=== PATIENT | male | born 1950 | race Caucasian/White ===

== ENCOUNTER 2019-04-06 15:41 | Emergency (ER) | payer OTHER ==
[2019-04-06] MEDS ORDERED: Adacel (T-DAP) 0.5 ML SYRINGE ONE ×2 (18:52→19:08)
[2019-04-06] MEDS ORDERED: Lidocaine 1% PF 5 ML VIAL ONE (19:01)
[2019-04-06] MEDS ORDERED: Triple Antibiotic Oint 1 GM Packet ONE (19:52)
== END 2019-04-06 16:02 | disposition left against medical advice (07) ==
LOC: ERS 15:41
DX: Z53.21 Procedure and treatment not carried out due to patient leaving prior to being seen by health care provider (principal)
CPT/HCPCS: 90715; J2001

== ENCOUNTER 2019-04-06 17:36 | Emergency (ER) | payer MEDICARE ==
--- NOTE | 2019-04-06 18:11 | RAD ---
EXAM: 3 views right middle finger DATE: 04/06/2019 5:41 PM INDICATION: Caught right middle finger in hydraulic table with laceration COMPARISON: None. 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 No acute fracture or subluxation is evident. There is overlying soft tissue bandage slightly limiting image detail. IMPRESSION:No acute fracture or subluxation demonstrated. No radiopaque foreign body.
== END 2019-04-06 20:00 | disposition home or self-care (01) ==
LOC: ERS 17:36
DX: S61.212A Laceration without foreign body of right middle finger without damage to nail, initial encounter (principal); I25.2 Old myocardial infarction; Z23 Encounter for immunization; Z79.899 Other long term (current) drug therapy; W23.0XXA Caught, crushed, jammed, or pinched between moving objects, initial encounter
CPT/HCPCS: 12001; 90471

== ENCOUNTER 2019-09-30 11:06 | Outpatient (CLI) | payer MEDICARE ==
--- NOTE | 2019-09-30 13:49 | RAD ---
PA AND LATERAL VIEWS CHEST: HISTORY: Fever of unknown origin. FINDINGS: Comparison is made with the exam of 08/25/2010. There are changes of median sternotomy. The heart size is normal. The aorta is tortuous. The lungs are expanded without focal areas of consolidation, pneumothoraces, or pleural effusions. There are degenerative changes in the spine. IMPRESSION: No radiographic evidence of acute cardiopulmonary process. POS: H
== END 2019-09-30 11:07 | disposition home or self-care (01) ==
LOC: RAD 11:06
PROVIDERS: ATTEND Physician Assistant
DX: R50.9 Fever, unspecified (principal)
CPT/HCPCS: 36415; 71046; 87040

== ENCOUNTER 2021-09-12 08:18 | Emergency (ER) | payer MEDICARE ==
[2021-09-12 09:41] LABS: #Eosinphils 0.1 thou/uL (0.0-0.7); #Lymphocytes 1.9 thou/uL (1.20-3.40); #Monocytes 0.6 thou/uL (0.11-0.59); #Neutrophils 3.3 thou/uL (1.40-6.50); %Basophils 0.6 % (0.0-1.0); %Lymphocytes 31.2 % (21.0-51.0); %Monocytes 10.7 % (0.0-10.0); %Neutrophils 55.5 % (42.0-75.0); Hemoglobin 15.9 g/dL (14.0-18.0); Mean Corpuscular HGB CONC 32.5 g/dL (32.0-36.0); Mean Corpuscular Hemoglobin 29.7 pg (27.0-31.0); Mean Corpuscular Volume 91.2 fL (78.0-98.0); Mean Platelet Volume 6.8 fL (7.4-10.4); Platelet Count 206 thou/uL (130-400); RBC Distribution Width 11.7 % (11.5-14.5); Red Blood Cell (RBC) Count 5.37 mill/uL (4.70-6.10)
[2021-09-12 09:57] LABS: ALT (SGPT) 45 U/L (8-55); AST (SGOT) 37 U/L (5-34); Albumin 3.8 g/dL (3.4-4.8); Alkaline Phosphatase 90 U/L (40-110); Anion Gap 13 mmol/L (10-20); BUN (Urea Nitrogen) 33 mg/dL (8.4-25.7); Bilirubin, Total 1.2 mg/dL (0.2-1.2); Calc. Creatinine Clearance 0 mL/min (70-130); Calcium 9.2 mg/dL (7.8-10.44); Carbon Dioxide 23 mmol/L (23-31); Chloride 108 mmol/L (98-107); Globulin 3.2 g/dL (2.4-3.5); Glucose 109 mg/dL (80-115); Lipase 30 U/L (8-78); Potassium 3.7 mmol/L (3.5-5.1); Sodium 140 mmol/L (136-145)
== END 2021-09-12 13:15 | disposition home or self-care (01) ==
LOC: ERS 08:18
DX: E86.0 Dehydration (principal); I10 Essential (primary) hypertension; I25.2 Old myocardial infarction; Z79.899 Other long term (current) drug therapy
CPT/HCPCS: 36415; 71045; 80053; 83605; 83690; 84484; 85025; 93005; 94760

== ENCOUNTER 2021-10-01 10:15 | Outpatient (CLI) | payer MEDICARE ==
[2021-10-01 12:28] LABS: Bilirubin Neg (Negative); Blood, Urine Negative (Negative); Clarity Clear (Clear); Glucose, Urine (Dipstick) Normal (Negative); Ketone, Urine Negative (Negative); Leukocyte Negative (Negative); Nitrite Negative (Negative); Protein, Urine (Dipstick) Negative (Neg-Trace); Specific Gravity, Urine 1.015 (1.002-1.036); Urobilinogen Normal mg/dL (Less than 2)
[2021-10-01 12:34] LABS: Hemoglobin 14.3 g/dL (13.5-17.5); Mean Corpuscular HGB CONC 33.2 g/dL (32.0-36.0); Mean Corpuscular Hemoglobin 30.1 pg (27.0-33.0); Mean Corpuscular Volume 90.7 fl (81.2-95.1); Mean Platelet Volume 9.5 fl (7.4-10.4); Platelet Count 192 10x3/uL (150-450); RBC Distribution Width 12.7 % (11.5-14.5); Red Blood Cell (RBC) Count 4.75 10x6/uL (4.32-5.72); White Blood Cell (WBC) Count 5.9 10x3/uL (3.5-10.5)
[2021-10-01 12:35] LABS: Bacteria/HPF Rare-Few HPF (None Seen); Squamous Epithelial 0-3 HPF (0-3); WBC/HPF None Seen HPF (0-3)
[2021-10-01 12:36] LABS: RBC/HPF 0-3 HPF (0-3)
[2021-10-01 13:12] LABS: Anion Gap 11 mmol/L (10-20); BUN (Urea Nitrogen) 16 mg/dL (8.4-25.7); Calc. Creatinine Clearance 0 mL/min (70-130); Calcium 8.6 mg/dL (7.8-10.44); Carbon Dioxide 26 mmol/L (23-31); Chloride 109 mmol/L (98-107); Glucose 101 mg/dL (80-115); Potassium 4.2 mmol/L (3.5-5.1); Sodium 142 mmol/L (136-145)
[2021-10-01 23:42] LABS: SARS-CoV-2 PCR by NAA Not Detected (NotDetected)
== END 2021-10-01 10:16 | disposition home or self-care (01) ==
LOC: LABBT 10:15
PROVIDERS: ATTEND Urology
DX: Z01.812 Encounter for preprocedural laboratory examination (principal); N40.1 Benign prostatic hyperplasia with lower urinary tract symptoms; Z20.822 Contact with and (suspected) exposure to COVID-19
CPT/HCPCS: 80048; 81001; 85027; 87086; U0003; U0005

== ENCOUNTER 2021-10-04 05:58 | Day surgery (SDC) | payer MEDICARE ==
[2021-10-01 11:16] VITALS: BMI 31.9
[2021-10-04] MEDS ORDERED: Fentanyl 250 MCG/5 ML VIAL ONE (06:56)
[2021-10-04] MEDS ORDERED: Levofloxacin 500 mg/D5W 100 ml Premix Bag ONE (07:26)
[2021-10-04] MEDS ORDERED: Ketorolac Tromethamine 30 MG/ML VIAL ONE (08:29)
[2021-10-04] MEDS ORDERED: Phenazopyridine HCl 100 MG TAB ONE (08:29)
[2021-10-04] MEDS ORDERED: Oxybutynin 5 MG TAB ONE (08:29)
[2021-10-04] MEDS ORDERED: hydrALAZINE 20 MG/ML VIAL ONE (09:50)
[2021-10-04] MEDS ORDERED: Losartan 25 MG TAB PO SCH (11:00)
[2021-10-04] MEDS ORDERED: Carvedilol 6.25 MG TAB PO SCH (11:00)
== END 2021-10-04 12:30 | disposition home or self-care (01) ==
LOC: SDC 05:58
PROVIDERS: ATTEND Urology
PROC: 0T7D8DZ Dilation of Urethra with Intraluminal Device, Via Natural or Artificial Opening Endoscopic (ICD-10-PCS; principal; 2021-10-04)
DX: N40.1 Benign prostatic hyperplasia with lower urinary tract symptoms (principal); N32.81 Overactive bladder; N52.01 Erectile dysfunction due to arterial insufficiency; I10 Essential (primary) hypertension; Z79.82 Long term (current) use of aspirin; Z79.899 Other long term (current) drug therapy; Z88.2 Allergy status to sulfonamides; Z95.1 Presence of aortocoronary bypass graft
CPT/HCPCS: C9740; L8699; J0360; J1885; J1956; J3010

== ENCOUNTER 2022-03-24 12:09 | Outpatient (CLI) | payer MEDICARE | END 2022-03-24 12:10 | disposition home or self-care (01) | LOC: BICULT 12:09 | PROVIDERS: ATTEND Internal Medicine Cardiovascular Disease | DX: E04.1 Nontoxic single thyroid nodule (principal) | CPT/HCPCS: 76536 ==

== ENCOUNTER 2023-03-31 13:38 | Outpatient (CLI) | payer MEDICARE | END 2023-03-31 13:39 | disposition home or self-care (01) | LOC: BICULT 13:38 | PROVIDERS: ATTEND Family Medicine | DX: E07.89 Other specified disorders of thyroid (principal); E04.1 Nontoxic single thyroid nodule | CPT/HCPCS: 76536 ==

== ENCOUNTER 2025-04-01 15:21 | Emergency (ER) | payer MEDICARE ==
[2025-04-01 15:46] LABS: #Basophils 0.03 10x3/uL (0.0-0.2); #Eosinophils 0.37 10x3/uL (0.0-0.7); #Monocytes 0.50 10x3/uL (0.11-0.59); #Neutrophils 18.78 10x3/uL (1.40-6.50); %Basophils 0.1 % (0.0-1.0); %Eosinophils 1.7 % (0.0-10.0); %Lymphocytes 6.9 % (21.0-51.0); %Monocytes 2.3 % (0.0-10.0); %Neutrophils 88.2 % (42.0-75.0); Hematocrit 51.4 % (42.0-52.0); Hemoglobin 17.4 g/dL (14.0-18.0); Mean Corpuscular Hemoglobin 29.8 pg (27.0-31.0); Mean Corpuscular Volume 88.0 fL (78.0-98.0); Platelet Count 244 10x3/uL (130-400); Red Blood Cell (RBC) Count 5.84 mill/uL (4.70-6.10); White Blood Cell (WBC) Count 21.31 10x3/uL (4.8-10.8)
[2025-04-01] MEDS ORDERED: Acetaminophen 500 MG TAB ONE (16:11)
[2025-04-01] MEDS ORDERED: predniSONE 20 MG TAB ONE (16:11)
[2025-04-01 16:16] LABS: ALT (SGPT) 28 U/L (Less than 45); AST (SGOT) 29 U/L (11-34); Albumin 3.6 g/dL (3.1-4.5); Alkaline Phosphatase 93 U/L (40-110); Anion Gap 16 mmol/L (10-20); BUN (Urea Nitrogen) 25 mg/dL (8.4-25.7); Bilirubin, Total 2.2 mg/dL (0.3-1.2); Calc. Creatinine Clearance 0 mL/min (70-130); Calcium 8.7 mg/dL (7.8-10.44); Carbon Dioxide 21 mmol/L (23-31); Chloride 100 mmol/L (98-107); Globulin 3.5 g/dL (2.4-3.5); Glucose 137 mg/dL (83-110); Potassium 3.7 mmol/L (3.5-5.1); Sodium 133 mmol/L (136-145)
[2025-04-01 16:40] LABS: INR-International Normal Ratio 1.4; Magnesium 1.5 mg/dL (1.6-2.6); PTT 31.6 sec (22.9-36.1); Prothrombin Time 16.9 sec (12.0-14.7)
[2025-04-01] MEDS ORDERED: Cefepime 2 GM VIAL ONE (17:04)
[2025-04-01] MEDS ORDERED: VANCOMYCIN 2 GRAM/400 ML Premix BAG IVPB SCH (17:15)
[2025-04-01] MEDS ORDERED: Magnesium 2 GM/50 ML BAG (IN WATER) ONE (18:34)
[2025-04-01 19:33] LABS: Bacteria/HPF 1+ HPF (None Seen); CAUTI Indications for Culture Dysuria,urgency,freq; Glucose, Urine (Dipstick) Normal (Negative); Leukocyte 25 Leu/uL (Negative); Protein, Urine (Dipstick) 30 mg/dL (Neg-Trace); RBC/HPF 0-3 HPF (0-3); Specific Gravity, Urine 1.031 (1.002-1.036)
[2025-04-01 19:34] LABS: Urine Culture Reflex Yes Yes
== END 2025-04-01 22:43 | disposition short-term general hospital (02) ==
LOC: ERS 15:21
DX: A41.9 Sepsis, unspecified organism (principal); L51.1 Stevens-Johnson syndrome; E78.5 Hyperlipidemia, unspecified; I10 Essential (primary) hypertension; Z95.1 Presence of aortocoronary bypass graft
CPT/HCPCS: 71045; 80053; 81001; 83605; 83735; 84145; 84484; 85025; 85610; 85730; 86060; 86141; 87040; 87086; 93005; 94760; J0692; J2270; J3475; 36415; 96361; 96365; 96366; 96367; 96375; J7512

== ENCOUNTER 2025-06-30 00:23 | Inpatient (IN) | payer MEDICARE ==
[2025-06-30 00:38] LABS: #Basophils 0.07 10x3/uL (0.0-0.2); #Eosinophils 0.23 10x3/uL (0.0-0.7); #Monocytes 0.73 10x3/uL (0.11-0.59); #Neutrophils 4.30 10x3/uL (1.40-6.50); %Basophils 0.8 % (0.0-1.0); %Eosinophils 2.5 % (0.0-10.0); %Lymphocytes 41.3 % (21.0-51.0); %Monocytes 8.0 % (0.0-10.0); %Neutrophils 47.0 % (42.0-75.0); Hematocrit 47.9 % (42.0-52.0); Hemoglobin 16.2 g/dL (14.0-18.0); Mean Corpuscular Hemoglobin 29.3 pg (27.0-31.0); Mean Corpuscular Volume 86.6 fL (78.0-98.0); Platelet Count 247 10x3/uL (130-400); Red Blood Cell (RBC) Count 5.53 mill/uL (4.70-6.10); White Blood Cell (WBC) Count 9.15 10x3/uL (4.8-10.8)
[2025-06-30 00:52] LABS: INR-International Normal Ratio 1.1; PTT 29.4 sec (22.9-36.1); Prothrombin Time 14.7 sec (12.0-14.7)
[2025-06-30 00:57] LABS: ALT (SGPT) 32 U/L (Less than 45); AST (SGOT) 35 U/L (11-34); Albumin 4.3 g/dL (3.1-4.5); Alkaline Phosphatase 99 U/L (40-110); Anion Gap 16 mmol/L (10-20); BUN (Urea Nitrogen) 18 mg/dL (8.4-25.7); Bilirubin, Total 1.4 mg/dL (0.3-1.2); Calc. Creatinine Clearance 0 mL/min (70-130); Calcium 9.6 mg/dL (7.8-10.44); Carbon Dioxide 23 mmol/L (23-31); Chloride 106 mmol/L (98-107); Globulin 3.3 g/dL (2.4-3.5); Glucose 116 mg/dL (83-110); Lipase 40 U/L (8-78); Potassium 3.8 mmol/L (3.5-5.1); Sodium 141 mmol/L (136-145)
[2025-06-30] MEDS ORDERED: Nitroglycerin 2% Ointment 1 INCH/1 GM Packet ONE (01:22)
[2025-06-30] MEDS ORDERED: Ondansetron PF 4 MG/2 ML Vial ONE ×2 (01:23→02:54)
[2025-06-30] MEDS ORDERED: Aspirin Chewable 81 MG TAB ONE (01:23)
[2025-06-30] MEDS ORDERED: Heparin 25,000 UNITS/D5W 500 ml bag ONE (01:56)
[2025-06-30] MEDS ORDERED: Heparin 10,000 UNITS/ 10 ML VIAL ONE ×2 (01:56→02:37)
[2025-06-30] MEDS ORDERED: Nitroglycerin 0.4 MG TAB (25 Tab Bottle) ONE (01:56)
[2025-06-30] MEDS ORDERED: Lidocaine 1% (PF) 30 ML VIAL ONE (02:37)
[2025-06-30] MEDS ORDERED: Adenosine 6 mg (2 mL) VIAL ONE (02:38)
[2025-06-30] MEDS ORDERED: Nitroglycerin 50 MG/250 ML BOT 0 ML ONE (02:38)
[2025-06-30] MEDS ORDERED: EPINEPHrine 1 MG/10 ML Abboject SYRINGE ONE (02:50)
[2025-06-30] MEDS ORDERED: PHENYLEPHRINE-NS 100 MCG/ML 10 ML SYRINGE ONE (02:50)
[2025-06-30] MEDS ORDERED: Nitroglycerin 0.4 MG TAB (25 Tab Bottle) SL PRN (05:06)
[2025-06-30] MEDS: Acetaminophen/Codeine 30-300mg Tablet PO PRN ×2 (05:38→09:16)
[2025-06-30] MEDS: Nitroglycerin 0.4 MG TAB (25 Tab Bottle) SL PRN (05:38)
[2025-06-30] MEDS ORDERED: Heparin 10,000 UNITS/ 10 ML VIAL SLOW IVP SCH (05:45)
[2025-06-30 06:30] LABS: Hematocrit 46.5 % (42.0-52.0); Hemoglobin 16.1 g/dL (14.0-18.0); Platelet Count 228 10x3/uL (130-400)
[2025-06-30] MEDS: Nitroglycerin 2% Ointment 1 INCH/1 GM Packet TOP PRN (06:52)
[2025-06-30] MEDS ORDERED: Electrolyte Replacement Protocol 1 EACH FS ONE (09:01)
[2025-06-30] MEDS ORDERED: PHOS-NAK 1 PKT PACK PO PRN (09:15)
[2025-06-30] MEDS ORDERED: Potassium Chloride 20 MEQ in Premix 1 BAG IVPB PRN (09:15)
[2025-06-30] MEDS: Losartan 25 MG TAB PO SCH (09:17)
[2025-06-30] MEDS: Aspirin 81 mg Enteric Coated Tablet PO SCH (09:17)
[2025-06-30] MEDS: Nitroglycerin 50 MG/250 ML BOT 250 ML IVPB SCH (10:02)
[2025-06-30 10:23] LABS: Anion Gap 15 mmol/L (10-20); BUN (Urea Nitrogen) 13 mg/dL (8.4-25.7); Calc. Creatinine Clearance 112 mL/min (70-130); Calcium 9.2 mg/dL (7.8-10.44); Carbon Dioxide 21 mmol/L (23-31); Chloride 105 mmol/L (98-107); Glucose 151 mg/dL (83-110); Magnesium 1.8 mg/dL (1.6-2.6); Potassium 3.8 mmol/L (3.5-5.1); Sodium 137 mmol/L (136-145)
[2025-06-30] MEDS ORDERED: Iopamidol 370 76% 100 ML VIAL ONE (10:59)
[2025-06-30] MEDS: Nitroglycerin 2% Ointment 1 INCH/1 GM Packet TOP SCH (13:35)
[2025-06-30] MEDS: Mupirocin 1 GM TUBE NASAL DECOLONIZATION NASAL SCH (19:36)
[2025-06-30 19:57] LABS: Hematocrit 45.5 % (42.0-52.0); Hemoglobin 15.3 g/dL (14.0-18.0); Platelet Count 242 10x3/uL (130-400)
[2025-07-01 03:18] LABS: #Basophils Less than 0.03 10x3/uL (0.0-0.2); #Eosinophils 0.05 10x3/uL (0.0-0.7); #Monocytes 1.35 10x3/uL (0.11-0.59); #Neutrophils 9.26 10x3/uL (1.40-6.50); %Basophils 0.2 % (0.0-1.0); %Eosinophils 0.4 % (0.0-10.0); %Lymphocytes 14.2 % (21.0-51.0); %Monocytes 10.8 % (0.0-10.0); %Neutrophils 74.2 % (42.0-75.0); Hematocrit 42.0 % (42.0-52.0); Hemoglobin 14.8 g/dL (14.0-18.0); Mean Corpuscular Hemoglobin 30.1 pg (27.0-31.0); Mean Corpuscular Volume 85.5 fL (78.0-98.0); Platelet Count 230 10x3/uL (130-400); Red Blood Cell (RBC) Count 4.91 mill/uL (4.70-6.10); White Blood Cell (WBC) Count 12.48 10x3/uL (4.8-10.8)
[2025-07-01 04:05] LABS: ALT (SGPT) 50 U/L (Less than 45); AST (SGOT) 240 U/L (11-34); Albumin 3.6 g/dL (3.1-4.5); Alkaline Phosphatase 83 U/L (40-110); Anion Gap 18 mmol/L (10-20); BUN (Urea Nitrogen) 14 mg/dL (8.4-25.7); Bilirubin, Total 2.0 mg/dL (0.3-1.2); Calc. Creatinine Clearance 105 mL/min (70-130); Calcium 9.0 mg/dL (7.8-10.44); Carbon Dioxide 23 mmol/L (23-31); Cardiac Risk 2.9 (Less than 4.5); Chloride 104 mmol/L (98-107); Cholesterol 126 mg/dl (< 200 Desired); Globulin 2.9 g/dL (2.4-3.5); Glucose 135 mg/dL (83-110); HDL Cholesterol 43 mg/dL (>60 Neg Risk); LDL Cholesterol, Calculated 70 mg/dL; Potassium 3.6 mmol/L (3.5-5.1); Sodium 141 mmol/L (136-145); Triglycerides 67 mg/dL (Less than 150)
[2025-07-01] MEDS: TICAGRELOR 90 MG TABLET PO SCH (08:31)
[2025-07-01] MEDS: Losartan 25 MG TAB PO SCH (11:23)
[2025-07-01 16:57] LABS: Magnesium 1.7 mg/dL (1.6-2.6)
[2025-07-01] MEDS: Magnesium 2 GM/50 ML(in water) 2 GM in Premix 1 BAG IVPB PRN (17:08)
[2025-07-02 03:57] LABS: Hematocrit 47.3 % (42.0-52.0); Hemoglobin 16.5 g/dL (14.0-18.0); Mean Corpuscular Hemoglobin 29.8 pg (27.0-31.0); Mean Corpuscular Volume 85.4 fL (78.0-98.0); Platelet Count 195 10x3/uL (130-400); Red Blood Cell (RBC) Count 5.54 mill/uL (4.70-6.10); White Blood Cell (WBC) Count 12.99 10x3/uL (4.8-10.8)
[2025-07-02 08:09] LABS: Hematocrit 48.5 % (42.0-52.0); Hemoglobin 16.5 g/dL (14.0-18.0); Platelet Count 219 10x3/uL (130-400)
[2025-07-02 08:27] LABS: ALT (SGPT) 39 U/L (Less than 45); AST (SGOT) 125 U/L (11-34); Albumin 3.6 g/dL (3.1-4.5); Alkaline Phosphatase 80 U/L (40-110); Anion Gap 15 mmol/L (10-20); BUN (Urea Nitrogen) 11 mg/dL (8.4-25.7); Bilirubin, Total 3.0 mg/dL (0.3-1.2); Calc. Creatinine Clearance 120 mL/min (70-130); Calcium 9.3 mg/dL (7.8-10.44); Carbon Dioxide 24 mmol/L (23-31); Chloride 102 mmol/L (98-107); Globulin 3.8 g/dL (2.4-3.5); Glucose 104 mg/dL (83-110); Magnesium 2.1 mg/dL (1.6-2.6); Potassium 3.7 mmol/L (3.5-5.1); Sodium 137 mmol/L (136-145)
[2025-07-02] MEDS: Losartan 25 MG TAB PO SCH (08:54)
[2025-07-02] MEDS: Metoprolol Succinate XL 50 MG ER.TAB PO SCH (08:54)
[2025-07-02] MEDS: TICAGRELOR 90 MG TABLET PO SCH (08:54)
[2025-07-02] MEDS: Spironolactone 25 MG TAB PO SCH (19:10)
[2025-07-02] MEDS: Sacubitril 24MG/Valsartan 26 MG TAB PO SCH (20:45)
[2025-07-03 04:47] LABS: Anion Gap 14 mmol/L (10-20); BUN (Urea Nitrogen) 17 mg/dL (8.4-25.7); Calc. Creatinine Clearance 113 mL/min (70-130); Calcium 9.0 mg/dL (7.8-10.44); Carbon Dioxide 21 mmol/L (23-31); Chloride 106 mmol/L (98-107); Glucose 87 mg/dL (83-110); Potassium 3.7 mmol/L (3.5-5.1); Sodium 137 mmol/L (136-145)
[2025-07-03] MEDS: Spironolactone 25 MG TAB PO SCH (09:05)
[2025-07-03] MEDS: Sacubitril 49 MG/Valsartan 51 MG TABLET PO SCH (09:05)
[2025-07-03] MEDS: Carvedilol 6.25 MG TAB PO SCH (09:06)
[2025-07-04 05:06] LABS: Hematocrit 47.4 % (42.0-52.0); Hemoglobin 16.5 g/dL (14.0-18.0); Mean Corpuscular Hemoglobin 30.8 pg (27.0-31.0); Mean Corpuscular Volume 88.4 fL (78.0-98.0); Platelet Count 255 10x3/uL (130-400); Red Blood Cell (RBC) Count 5.36 mill/uL (4.70-6.10); White Blood Cell (WBC) Count 11.57 10x3/uL (4.8-10.8)
[2025-07-04 05:14] LABS: ALT (SGPT) 28 U/L (Less than 45); AST (SGOT) 46 U/L (11-34); Albumin 3.4 g/dL (3.1-4.5); Alkaline Phosphatase 68 U/L (40-110); Anion Gap 17 mmol/L (10-20); BUN (Urea Nitrogen) 19 mg/dL (8.4-25.7); Bilirubin, Total 2.1 mg/dL (0.3-1.2); Calc. Creatinine Clearance 105 mL/min (70-130); Calcium 9.4 mg/dL (7.8-10.44); Carbon Dioxide 17 mmol/L (23-31); Chloride 107 mmol/L (98-107); Globulin 3.9 g/dL (2.4-3.5); Glucose 90 mg/dL (83-110); Potassium 3.9 mmol/L (3.5-5.1); Sodium 137 mmol/L (136-145)
[2025-07-04] MEDS: Carvedilol 6.25 MG TAB PO SCH (09:31)
[2025-07-04] MEDS: Furosemide 20 MG (2 mL) VIAL SLOW IVP SCH (13:41)
[2025-07-05 05:29] VITALS: BMI 32.3
[2025-07-05 15:31] VITALS: BP 142/88; TEMP 97.8
== END 2025-07-05 17:50 | disposition home or self-care (01) | DRG 282 ==
LOC: ERS 00:23 → CCL 02:57 → CCU 04:33 → 2NO 07-02 13:36
PROVIDERS: ADMIT Internal Medicine; ATTEND Internal Medicine
PROC: 4A023N8 Measurement of Cardiac Sampling and Pressure, Bilateral, Percutaneous Approach (ICD-10-PCS; principal; 2025-06-30)
PROC: B2161ZZ Fluoroscopy of Right and Left Heart using Low Osmolar Contrast (ICD-10-PCS; 2025-06-30)
PROC: B2111ZZ Fluoroscopy of Multiple Coronary Arteries using Low Osmolar Contrast (ICD-10-PCS; 2025-06-30)
DX: I25.10 Atherosclerotic heart disease of native coronary artery without angina pectoris (principal); I21.3 ST elevation (STEMI) myocardial infarction of unspecified site; I10 Essential (primary) hypertension; I25.5 Ischemic cardiomyopathy; E78.00 Pure hypercholesterolemia, unspecified; Z98.890 Other specified postprocedural states; Z88.2 Allergy status to sulfonamides; Z79.899 Other long term (current) drug therapy; Z95.1 Presence of aortocoronary bypass graft; Z79.82 Long term (current) use of aspirin
CPT/HCPCS: 0439T; 36215; 36225; 36415; 71045; 71046; 80048; 80053; 80061; 83690; 83735; 83880; 84484; 85014; 85018; 85025; 85027; 85049; 85347; 85379; 85610; 85730; 86850; 86900; 86901; 93005; 93010; 93306; 93459; 93798; 96365; 96375; 97139; 99152; 99153; C1725; C1769; J0153; J0165; J0461; J0583; J1644; J1940; J2003; J2250; J2270; J2272; J2405; J3010; J3246; J3475; Q9957; Q9967

== ENCOUNTER 2025-07-15 10:09 | Inpatient (IN) | payer MEDICARE ==
[2025-07-15 10:37] LABS: #Basophils 0.06 10x3/uL (0.0-0.2); #Eosinophils 0.20 10x3/uL (0.0-0.7); #Monocytes 0.69 10x3/uL (0.11-0.59); #Neutrophils 6.49 10x3/uL (1.40-6.50); %Basophils 0.6 % (0.0-1.0); %Eosinophils 1.9 % (0.0-10.0); %Lymphocytes 28.6 % (21.0-51.0); %Monocytes 6.6 % (0.0-10.0); %Neutrophils 61.9 % (42.0-75.0); Hematocrit 50.0 % (42.0-52.0); Hemoglobin 17.0 g/dL (14.0-18.0); Mean Corpuscular Hemoglobin 29.7 pg (27.0-31.0); Mean Corpuscular Volume 87.3 fL (78.0-98.0); Platelet Count 360 10x3/uL (130-400); Red Blood Cell (RBC) Count 5.73 mill/uL (4.70-6.10); White Blood Cell (WBC) Count 10.47 10x3/uL (4.8-10.8)
[2025-07-15 10:55] LABS: ALT (SGPT) 33 U/L (Less than 45); AST (SGOT) 35 U/L (11-34); Albumin 4.0 g/dL (3.1-4.5); Alkaline Phosphatase 94 U/L (40-110); Anion Gap 16 mmol/L (10-20); BUN (Urea Nitrogen) 20 mg/dL (8.4-25.7); Bilirubin, Total 1.1 mg/dL (0.3-1.2); Calc. Creatinine Clearance 0 mL/min (70-130); Calcium 9.8 mg/dL (7.8-10.44); Carbon Dioxide 21 mmol/L (23-31); Chloride 104 mmol/L (98-107); Globulin 3.8 g/dL (2.4-3.5); Glucose 111 mg/dL (83-110); Potassium 4.3 mmol/L (3.5-5.1); Sodium 137 mmol/L (136-145)
[2025-07-15] MEDS ORDERED: Nitroglycerin 0.4 MG TAB (25 Tab Bottle) SL PRN (13:57)
[2025-07-15] MEDS: Sacubitril 49 MG/Valsartan 51 MG TABLET PO SCH ×2 (14:54→21:15)
[2025-07-15 15:15] VITALS: BMI 32.2
[2025-07-15] MEDS ORDERED: TICAGRELOR 90 MG TABLET PO SCH (21:00)
[2025-07-15] MEDS: Carvedilol 6.25 MG TAB PO SCH (21:15)
[2025-07-16 05:32] LABS: #Basophils 0.05 10x3/uL (0.0-0.2); #Eosinophils 0.18 10x3/uL (0.0-0.7); #Monocytes 0.73 10x3/uL (0.11-0.59); #Neutrophils 5.85 10x3/uL (1.40-6.50); %Basophils 0.6 % (0.0-1.0); %Eosinophils 2.0 % (0.0-10.0); %Lymphocytes 22.7 % (21.0-51.0); %Monocytes 8.2 % (0.0-10.0); %Neutrophils 65.9 % (42.0-75.0); Hematocrit 48.4 % (42.0-52.0); Hemoglobin 16.5 g/dL (14.0-18.0); Mean Corpuscular Hemoglobin 29.8 pg (27.0-31.0); Mean Corpuscular Volume 87.5 fL (78.0-98.0); Platelet Count 331 10x3/uL (130-400); Red Blood Cell (RBC) Count 5.53 mill/uL (4.70-6.10); White Blood Cell (WBC) Count 8.87 10x3/uL (4.8-10.8)
[2025-07-16 06:01] LABS: ALT (SGPT) 32 U/L (Less than 45); AST (SGOT) 33 U/L (11-34); Albumin 3.4 g/dL (3.1-4.5); Alkaline Phosphatase 78 U/L (40-110); Anion Gap 17 mmol/L (10-20); BUN (Urea Nitrogen) 18 mg/dL (8.4-25.7); Bilirubin, Total 0.8 mg/dL (0.3-1.2); Calc. Creatinine Clearance 92 mL/min (70-130); Calcium 9.4 mg/dL (7.8-10.44); Carbon Dioxide 18 mmol/L (23-31); Chloride 111 mmol/L (98-107); Globulin 3.4 g/dL (2.4-3.5); Glucose 94 mg/dL (83-110); Potassium 4.6 mmol/L (3.5-5.1); Sodium 141 mmol/L (136-145)
[2025-07-16] MEDS: Spironolactone 25 MG TAB PO SCH (08:42)
[2025-07-16] MEDS: Aspirin 81 mg Enteric Coated Tablet PO SCH (08:42)
[2025-07-16] MEDS: Isosorbide Mononitrate 30 MG ER.TAB.S PO SCH (12:35)
[2025-07-17 05:16] LABS: #Basophils 0.07 10x3/uL (0.0-0.2); #Eosinophils 0.51 10x3/uL (0.0-0.7); #Monocytes 0.98 10x3/uL (0.11-0.59); #Neutrophils 5.39 10x3/uL (1.40-6.50); %Basophils 0.8 % (0.0-1.0); %Eosinophils 5.7 % (0.0-10.0); %Lymphocytes 22.1 % (21.0-51.0); %Monocytes 10.9 % (0.0-10.0); %Neutrophils 60.3 % (42.0-75.0); Hematocrit 45.7 % (42.0-52.0); Hemoglobin 15.3 g/dL (14.0-18.0); Mean Corpuscular Hemoglobin 29.6 pg (27.0-31.0); Mean Corpuscular Volume 88.4 fL (78.0-98.0); Platelet Count 317 10x3/uL (130-400); Red Blood Cell (RBC) Count 5.17 mill/uL (4.70-6.10); White Blood Cell (WBC) Count 8.95 10x3/uL (4.8-10.8)
[2025-07-17 05:25] LABS: ALT (SGPT) 27 U/L (Less than 45); AST (SGOT) 23 U/L (11-34); Albumin 3.4 g/dL (3.1-4.5); Alkaline Phosphatase 79 U/L (40-110); Anion Gap 13 mmol/L (10-20); BUN (Urea Nitrogen) 24 mg/dL (8.4-25.7); Bilirubin, Total 1.0 mg/dL (0.3-1.2); Calc. Creatinine Clearance 79 mL/min (70-130); Calcium 9.1 mg/dL (7.8-10.44); Carbon Dioxide 21 mmol/L (23-31); Chloride 109 mmol/L (98-107); Globulin 3.1 g/dL (2.4-3.5); Glucose 90 mg/dL (83-110); Potassium 4.1 mmol/L (3.5-5.1); Sodium 139 mmol/L (136-145)
[2025-07-17] MEDS: Isosorbide Mononitrate 30 MG ER.TAB.S PO SCH (08:32)
[2025-07-17 16:18] VITALS: BP 121/75; TEMP 98.2
[2025-07-18] MEDS ORDERED: FLU (Fluad Triv) 25-26 (65UP)PF 45 MCG/0.5 ML Syringe IM ONE (09:00)
== END 2025-07-17 18:35 | disposition home or self-care (01) | DRG 313 ==
LOC: ERS 10:09 → 2NO 13:17 → OBSVTOIN 07-16 13:51
PROVIDERS: ADMIT Student in an Organized Health Care Education/Training Program; ATTEND Student in an Organized Health Care Education/Training Program
DX: R07.9 Chest pain, unspecified (principal); I50.22 Chronic systolic (congestive) heart failure; I47.10 Supraventricular tachycardia, unspecified; I25.5 Ischemic cardiomyopathy; N40.1 Benign prostatic hyperplasia with lower urinary tract symptoms; E78.5 Hyperlipidemia, unspecified; R35.1 Nocturia; I11.0 Hypertensive heart disease with heart failure; I25.2 Old myocardial infarction; Z98.890 Other specified postprocedural states; Z88.1 Allergy status to other antibiotic agents; Z88.2 Allergy status to sulfonamides; Z79.899 Other long term (current) drug therapy; Z79.82 Long term (current) use of aspirin; Z95.1 Presence of aortocoronary bypass graft; Z23 Encounter for immunization
CPT/HCPCS: 36415; 71045; 80053; 83880; 84484; 85025; 93005; 93010; G0378